=== PATIENT | male | born 1955 ===

== ENCOUNTER 2016-04-15 19:23 | Emergency (ER) | payer OTHER ==
[2016-04-15 15:36] LABS: BASOPHILS 0.3 %; BASOPHILS ABSOLUTE 0.03 10/3/uL (0.0-0.16); EOSINOPHILS 1.1 %; HEMOGLOBIN 15.6 g/dL (13.6-17.8); IMMATURE GRANULOCYTES 0.6 %; IMMATURE GRANULOCYTES ABSOLUTE 0.05 10/3/uL (0.0-0.11); LYMPHOCYTES 15.9 %; MEAN CORPUS HGB CONC 35.5 g/dL (32.0-36.0); MEAN CORPUSCULAR HEMOGLOB 30.6 pg (26.0-34.0); MEAN CORPUSCULAR VOLUME 86.3 fL (80-100); MEAN PLATELET VOLUME 8.7 fL (9.2-13.0); MONOCYTES 8.9 %; MONOCYTES ABSOLUTE 0.78 10/3/uL (0.21-1.20); NEUTROPHILS 73.2 %; NEUTROPHILS ABSOLUTE 6.42 10/3/uL (2.02-8.40); PLATELET COUNT 238 10/3/uL (150-400); RBC DISTRIBUTION WIDTH 13.3 % (12.0-16.0)
[2016-04-15 15:37] LABS: MANUAL DIFF NO %; WHITE BLOOD CELLS 8.8 10/3/uL (4.5-10.5)
[2016-04-15 15:53] LABS: ALBUMIN 3.6 G/DL (3.5-5.0); CALCIUM, SERUM 9.1 MG/DL (8.5-10.4); CHLORIDE, SERUM 104 MMOL/L (96-112); CREATININE 0.95 MG/DL (0.70-1.30); GFR AFRICAN AMERICAN 100 ML/MIN (>=60); GFR NON AFRICAN AMERICAN 87 ML/MIN (>=60); POTASSIUM, SERUM 3.8 MMOL/L (3.5-5.3); SGOT(AST) 11 U/L (5-40); SGPT(ALT) 37 U/L (5-65); SODIUM, SERUM 139 MMOL/L (135-148); TOTAL BILIRUBIN 0.3 MG/DL (0-1.2); TOTAL PROTEIN 8.4 G/DL (6.0-8.5)
[2016-04-15 15:55] LABS: A/G RATIO 0.8 (0.7-1.9); ALKALINE PHOSPHATASE 115 U/L (45-117); BUN (BLOOD UREA NITROGEN) 16 MG/DL (6-23); CO2 (CARBON DIOXIDE) 23 MMOL/L (24-34); GLOBULIN 4.8 G/DL (2.5-4.1); GLUCOSE, SERUM 95 MG/DL (60-99)
[2016-11-15] MEDS ORDERED: HALF81 PO (11:37)
[2016-11-16] MEDS ORDERED: ARNUITY ELLIP200 MCG INH (06:16)
== END 2016-04-15 22:15 | disposition home or self-care (01) ==
LOC: ER 19:23
PROVIDERS: Emergency Medicine
DX: S22.42XA Multiple fractures of ribs, left side, initial encounter for closed fracture (principal); I10 Essential (primary) hypertension; K21.9 Gastro-esophageal reflux disease without esophagitis; X58.XXXA Exposure to other specified factors, initial encounter
CPT/HCPCS: 71020; 71250; 80053; 85025; 93005; 99285; A9270-GY

== ENCOUNTER 2016-05-05 17:25 | Inpatient (IN) | payer OTHER ==
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
--- NOTE | ~2016-05-05 | TEE ---
Transesophageal Echocardiogram [facility] [address] [place]. [address] NAME: THEODORE LOZA : 55 STATUS : ADM IN PAT#: [id number] AGE: 60 ADM/REG DATE : 05/05/16 MR#: [id number] REPORT SERV DATE: 05/08/16 DICTATED BY: ISREAL ESTEVEZ DATE: 05/08/16 REPORT STATUS : Draft TRANSCRIBED BY: MODL DATE: 05/08/16 INDICATIONS: Syncope. PROCEDURE: After questions were answered and consents were signed, the patient was sedated with propofol per Anesthesia. The probe was placed in the midesophagus and images were obtained without difficulty. At the conclusion of the procedure, the probe was withdrawn and the patient was recovering in the short-stay unit. No complications were noted. 2D INTERPRETATION: The left ventricular size and function were normal. There was mild LVH with good contractility. The mitral valve opened adequately. No prolapse was noted. No thrombus was noted in the left atrium or the left atrial appendage. The left atrium did appear to be mildly enlarged. The interatrial septum was intact. The right atrium was grossly normal in size. The right ventricle, grossly normal in size. The tricuspid valve was structurally normal. No prolapse or stenosis. The aortic valve was trileaflet and opened adequately. No prolapse or stenosis was noted. The pulmonic valve was not well visualized on today's study. No pericardial effusion was noted. No obvious atherosclerotic plaquing was noted in the descending aorta or aortic arch. COLOR FLOW: Mild mitral regurgitation. No significant aortic insufficiency. Mild tricuspid regurgitation. No color flow across the interatrial septum. CONCLUSION: 1. NORMAL LEFT VENTRICULAR SYSTOLIC FUNCTION WITH ESTIMATED LVEF OF GREATER THAN 55%. 2. NO SIGNIFICANT VALVULAR ABNORMALITY. 3. NO OBVIOUS STRUCTURAL ABNORMALITY TO ACCOUNT FOR SYNCOPE. WO/MODL Isreal Estevez M.D., Ph.D, F.A.C.C. / [id number] CC: Nilsa Polanco Jr., M.D.
[2016-05-05 16:27] LABS: BASOPHILS 0.2 %; BASOPHILS ABSOLUTE 0.02 10/3/uL (0.0-0.16); EOSINOPHILS 1.2 %; EOSINOPHILS ABSOLUTE 0.16 10/3/uL (0.0-0.53); HEMATOCRIT 42.8 % (40.0-51.0); HEMOGLOBIN 15.1 g/dL (13.6-17.8); IMMATURE GRANULOCYTES 0.5 %; IMMATURE GRANULOCYTES ABSOLUTE 0.07 10/3/uL (0.0-0.11); LYMPHOCYTES 9.2 %; LYMPHOCYTES ABSOLUTE 1.18 10/3/uL (0.67-4.30); MEAN CORPUS HGB CONC 35.3 g/dL (32.0-36.0); MEAN CORPUSCULAR HEMOGLOB 30.6 pg (26.0-34.0); MEAN CORPUSCULAR VOLUME 86.8 fL (80-100); MEAN PLATELET VOLUME 8.6 fL (9.2-13.0); MONOCYTES 7.5 %; MONOCYTES ABSOLUTE 0.96 10/3/uL (0.21-1.20); NEUTROPHILS 81.4 %; NEUTROPHILS ABSOLUTE 10.48 10/3/uL (2.02-8.40); PLATELET COUNT 241 10/3/uL (150-400); RBC DISTRIBUTION WIDTH 13.9 % (12.0-16.0); RED CELL COUNT 4.93 10/6/uL (4.7-6.1)
[2016-05-05 16:29] LABS: ER CBC TAT 0 Hrs 10 Mins; MANUAL DIFF NO %; WHITE BLOOD CELLS 12.9 10/3/uL (4.5-10.5)
[2016-05-05 16:36] LABS: INTERNATIONAL NORMAL RATI 1.3 UNITS (-); PARTIAL THROMBO TIME 31.6 SEC (22.5-37.2); PROTIME (NOT ORD) 16.3 SEC (12.0-14.5)
[2016-05-05 16:39] LABS: BUN (BLOOD UREA NITROGEN) 19 MG/DL (6-23); CHEST PAIN PROFILE TAT 0 Hrs 20 Mins; CHLORIDE, SERUM 101 MMOL/L (96-112); CO2 (CARBON DIOXIDE) 27 MMOL/L (24-34); CREATININE 1.18 MG/DL (0.70-1.30); GFR AFRICAN AMERICAN 77 ML/MIN (>=60); GFR NON AFRICAN AMERICAN 67 ML/MIN (>=60); GLUCOSE, SERUM 92 MG/DL (60-99); POTASSIUM, SERUM 4.1 MMOL/L (3.5-5.3); SODIUM, SERUM 140 MMOL/L (135-148); TROPONIN I <0.02 NG/ML (<0.05)
[2016-05-05] MEDS ORDERED: HYZAAR1 TAB PO (18:17)
[2016-05-05] MEDS ORDERED: FLOMAX4 PO (18:17)
[2016-05-05] MEDS ORDERED: TESSALON200 MG PO (18:17)
[2016-05-05] MEDS ORDERED: DUONEB INH (18:18)
[2016-05-05] MEDS ORDERED: FORTEO SC (18:19)
[2016-05-05] MEDS ORDERED: ADVIL PO (18:19)
[2016-05-05] MEDS ORDERED: PEPCID40 MG PO (18:19)
[2016-05-05] MEDS ORDERED: VIBRATAB100 MG PO (18:20)
[2016-05-05] MEDS ORDERED: ANOROELLIPTA INH (18:20)
[2016-05-05] MEDS ORDERED: ACET500CAP PO (18:20)
[2016-05-05] MEDS ORDERED: P10 PO (18:21)
[2016-05-05] MEDS ORDERED: VITAMIN D31000 UNIT PO (18:22)
[2016-05-05] MEDS ORDERED: MULTIVIT/MIN PO (18:22)
[2016-05-05] MEDS ORDERED: ROLAIDS PO (18:22)
[2016-05-08 06:43] LABS: INTERNATIONAL NORMAL RATI 1.4 UNITS (-); PROTIME (NOT ORD) 17.2 SEC (12.0-14.5)
[2016-05-09] MEDS ORDERED: NORCO1 TA1 PO (08:58)
[2016-11-15] MEDS ORDERED: HALF81 PO (11:37)
[2016-11-16] MEDS ORDERED: ARNUITY ELLIP200 MCG INH (06:16)
== END 2016-05-09 11:30 | disposition home or self-care (01) | DRG 200 ==
LOC: ER 17:25 → 5NO 19:32
PROVIDERS: Physician Assistant; Thoracic Surgery (Cardiothoracic Vascular Surgery)
PROC: B246ZZ4 Ultrasonography of Right and Left Heart, Transesophageal (ICD-10-PCS; principal; 2016-05-08)
DX: S27.0XXA Traumatic pneumothorax, initial encounter (principal); S22.42XA Multiple fractures of ribs, left side, initial encounter for closed fracture; Z68.41 Body mass index [BMI] 40.0-44.9, adult; V49.9XXA Car occupant (driver) (passenger) injured in unspecified traffic accident, initial encounter; Y92.410 Unspecified street and highway as the place of occurrence of the external cause; T79.7XXA Traumatic subcutaneous emphysema, initial encounter; Z87.891 Personal history of nicotine dependence; E66.9 Obesity, unspecified
CPT/HCPCS: 36415; 70450; 70486; 71010; 71020; 71260; 72125; 73090-LT; 74177; 80048; 83735; 84484; 85025; 85610; 85730; 86850; 86900; 86901; 90471; 93005; 93312; 93320; 93325; 93880; 94640; 96374; 96375; 99291; A9270-GY; C8929; J1170; J2405; Q9957; Q9967